=== PATIENT | male | born 1975 | race Caucasian/White ===

== ENCOUNTER 2016-09-19 20:10 | Emergency (ER) | payer MEDICAID, OTHER ==
[~2016-09-19] VITALS: Ht 185.4 cm; Wt 108.9 kg
[2016-09-19 20:58] LABS: BILIRUBIN,URINE NEGATIVE (NEGATIVE); KETONES,URINE NEGATIVE (NEGATIVE); LEUKOCYTE ESTERASE ,URINE 3+ (NEGATIVE); NITRITE,URINE NEGATIVE (NEGATIVE); PH,URINE 5 (5-9); PROTEIN,URINE 2+ (NEGATIVE); UROBILINOGEN,URINE NORMAL (NORMAL)
[2016-09-19] MEDS ORDERED: NS IV 1000 ML 3,500 ML IV PRN (21:00)
[2016-09-19] MEDS ORDERED: ACETAMINOPHEN 500 MG TAB (TYLENOL) PO PRN (21:00)
[2016-09-19] MEDS ORDERED: KETOROLAC 30 MG/ML VIAL IVP STA (21:00)
[2016-09-19] MEDS ORDERED: cefTRIAXone 1 GM (ROCEPHIN) VIAL IV STA (21:00)
[2016-09-19 21:06] LABS: SQUAMOUS EPITHELIAL CELL,UR 0-2 /HPF; YEAST,URINE FEW /HPF
[2016-09-19 21:39] LABS: BASOPHILS # (AUTO) 0.1 10^3/uL (0.0-0.1); BASOPHILS % (AUTO) 0 % (0-10); EOSINOPHILS # (AUTO) 0.1 10^3/uL (0.0-0.3); EOSINOPHILS % (AUTO) 0 % (0-10); LYMPHOCYTES # (AUTO) 1.9 X 10^3 (1.0-4.0); LYMPHOCYTES % (AUTO) 9 % (12-44); MEAN CORPUSCULAR HEMOGLOBIN 30 PG (25-34); MEAN CORPUSCULAR HGB CONC 34 G/DL (32-36); MEAN CORPUSCULAR VOLUME 90 FL (80-99); MEAN PLATELET VOLUME 9.5 FL (7.4-10.4); MONOCYTES # (AUTO) 2.7 X 10^3 (0.0-1.0); MONOCYTES % (AUTO) 13 % (0-12); NEUTROPHILS # (AUTO) 16.3 X 10^3 (1.8-7.8); NEUTROPHILS % (AUTO) 77 % (42-75); PLATELET COUNT 355 10^3/uL (130-400); RED BLOOD COUNT 4.84 10^6/uL (4.35-5.85); RED CELL DISTRIBUTION WIDTH 12.9 % (10.0-14.5); WHITE BLOOD COUNT 21.1 10^3/uL (4.3-11.0)
--- NOTE | 2016-09-19 21:46 | ED GU-Male ---
General Chief Complaint: Abdominal/GI Problems Stated Complaint: KIDNEY STONE Nursing Triage Note: RIGHT FLANK PAIN X2 WEEKS, KNOWN KIDNEY STONE. ALSO C/O LEFT RIB PAIN X2 WEEKS S/P FALL Source: patient, spouse Exam Limitations: no limitations History of Present Illness Time seen by provider: 20:50 Initial Comments 40-year-old male patient presents to the emergency department complaints of right flank pain for approximately 2 weeks. Worse today. Does have a known 6 mm stone in the right kidney. Go in the emergency department in [place] for left rib pain after falling. Reports fever today. NPO since 1930. Timing/Duration: other (onset 2 weeks ago, worse over the last couple of days.) Severity/Quality: aching, sharp, stabbing Location: right flank Radiation: other (right low back) Activities at Onset: none Prior Genitourinary Problems: similar symptoms Sexual Rubicon History: less than 2 months ago, single partner Modifying Factors: Worsens With Lying down, Worsens With Palpation Allergies and Home Medications Allergies Coded Allergies: No Known Drug Allergies (Unverified , 09/19/16) Home Medications No Active Prescriptions or Reported Meds Constitutional: chills, diaphoresis, fever, malaise EENTM: no symptoms reported Respiratory: No cough, No short of breath Cardiovascular: No chest pain, No edema, No palpitations Gastrointestinal: see HPI, No abdominal pain, No constipation, No diarrhea, loss of appetite, nausea, No vomiting Genitourinary: see HPI, denies burning, denies discharge, denies dysuria, denies frequency, flank pain (right flank pain), denies hematuria Musculoskeletal: see HPI, back pain (right low back), No joint pain Skin: no symptoms reported Psychiatric/Neurological: No Symptoms Reported All Other Systemes Reviewed Negative Unless Noted: Yes (Negative excepted noted.) Past Kddowbm-Mhajhy-Itroox Hx Patient Social History Alcohol Use: Regular Use Recreational Drug Use: No Smoking Status: Current Everyday Smoker Type Used: Cigarettes 2nd Hand Smoke Exposure: Yes Recent Foreign Travel: No Contact w/Someone Who Travel: No Recent Infectious Disease Expo: No Recent Hopitalizations: No Immunizations Up To Date Tetanus Booster (TDap): Unknown Seasonal Allergies Seasonal Allergies: No Surgeries HX Surgeries: Yes Surgeries: Orthopedic Respiratory Hx Respiratory Disorders: No Cardiovascular Hx Cardiac Disorders: No Neurological Hx Neurological Disorders: No Genitourinary Hx Genitourinary Disorders: Yes Genitourinary Disorders: Kidney Stones Gastrointestinal Hx Gastrointestinal Disorders: No Musculoskeletal Hx Musculoskeletal Disorders: Yes Musculoskeletal Disorders: Back Injury, Chronic Back Pain Endocrine Hx Endocrine Disorders: No HEENT HX ENT Disorders: No Cancer Hx Cancer: No Blood Transfusions Adverse Reaction to a Blood Tr: No Reviewed Nursing Assessment Reviewed/Agree w Nursing PMH: Yes Family Medical History Significant Family History: No Pertinent Family Hx Physical Exam Vital Signs Vital Sign - Last 12Hours 09/19/16 20:48 Temp 101.4 Pulse 91 Resp 20 B/P (MAP) 149/92 Pulse Ox 98 O2 Delivery Room Air Capillary Refill : Less Than 3 Seconds General Appearance: WD/WN, moderate distress HEENT: PERRL/EOMI, pharynx normal Neck: supple, normal inspection Cardiovascular: normal peripheral pulses, no edema, no murmur, tachycardia Respiratory: lungs clear, normal breath sounds, no respiratory distress Gastrointestinal: normal bowel sounds, soft, no organomegaly, No distended, guarding ((right flank)), No rebound, tenderness (right flank tenderness) Back: normal inspection, no vertebral tenderness, CVA tenderness (R), No CVA tenderness (L) Extremities: no pedal edema, normal capillary refill Neurologic/Psychiatric: alert, normal mood/affect, oriented x 3 Skin: normal color, diaphoresis Focused Exam Lactic Acid Level Laboratory Tests Test 09/19/16 21:15 Lactic Acid Level 1.47 MMOL/L (0.50-2.00) Progress/Results/Core Measures Results/Orders Lab Results Laboratory Tests Test 09/19/16 20:54 09/19/16 21:15 Range/Units Urine Color YELLOW Urine Clarity CLEAR Urine pH 5 5-9 Urine Specific [place] 1.020 1.016-1.022 Urine Protein 2+ H NEGATIVE Urine Glucose (UA) NEGATIVE NEGATIVE Urine Ketones NEGATIVE NEGATIVE Urine Nitrite NEGATIVE NEGATIVE Urine Bilirubin NEGATIVE NEGATIVE Urine Urobilinogen NORMAL NORMAL MG/DL Urine Leukocyte Esterase 3+ H NEGATIVE Urine RBC (Auto) 1+ H NEGATIVE Urine RBC 0-2 /HPF Urine WBC 10-25 H /HPF Urine Squamous Epithelial Cells 0-2 /HPF Urine Crystals NONE /LPF Urine Bacteria NEGATIVE /HPF Urine Casts NONE /LPF Urine Mucus NEGATIVE /LPF Urine Yeast FEW H /HPF Urine Culture Indicated YES Urine Opiates Screen NEGATIVE NEGATIVE Urine Oxycodone Screen NEGATIVE NEGATIVE Urine Methadone Screen NEGATIVE NEGATIVE Urine Propoxyphene Screen NEGATIVE NEGATIVE Urine Barbiturates Screen NEGATIVE NEGATIVE Ur Tricyclic Antidepressants Screen NEGATIVE NEGATIVE Urine Phencyclidine Screen NEGATIVE NEGATIVE Urine Amphetamines Screen POSITIVE H NEGATIVE Urine Methamphetamines Screen POSITIVE H NEGATIVE Urine Benzodiazepines Screen NEGATIVE NEGATIVE Urine Cocaine Screen NEGATIVE NEGATIVE Urine Cannabinoids Screen NEGATIVE NEGATIVE White Blood Count 21.1 H 4.3-11.0 10^3/uL Red Blood Count 4.84 4.35-5.85 10^6/uL Hemoglobin 14.6 13.3-17.7 G/DL Hematocrit 44 40-54 % Mean Corpuscular Volume 90 80-99 FL Mean Corpuscular Hemoglobin 30 25-34 PG Mean Corpuscular Hemoglobin Concent 34 32-36 G/DL Red Cell Distribution Width 12.9 10.0-14.5 % Platelet Count 355 130-400 10^3/uL Mean Platelet Volume 9.5 7.4-10.4 FL Neutrophils (%) (Auto) 77 H 42-75 % Lymphocytes (%) (Auto) 9 L 12-44 % Monocytes (%) (Auto) 13 H 0-12 % Eosinophils (%) (Auto) 0 0-10 % Basophils (%) (Auto) 0 0-10 % Neutrophils # (Auto) 16.3 H 1.8-7.8 X 10^3 Lymphocytes # (Auto) 1.9 1.0-4.0 X 10^3 Monocytes # (Auto) 2.7 H 0.0-1.0 X 10^3 Eosinophils # (Auto) 0.1 0.0-0.3 10^3/uL Basophils # (Auto) 0.1 0.0-0.1 10^3/uL Neutrophils % (Manual) 85 % Lymphocytes % (Manual) 7 % Monocytes % (Manual) 8 % Eosinophils % (Manual) 0 % Basophils % (Manual) 0 % Band Neutrophils 0 % Blood Morphology Comment NORMAL Prothrombin Time 13.4 12.2-14.7 SEC INR Comment 1.1 0.8-1.4 Activated Partial Thromboplast Time 38 H 24-35 SEC Sodium Level 134 L 135-145 MMOL/L Potassium Level 4.5 3.6-5.0 MMOL/L Chloride Level 98 98-107 MMOL/L Carbon Dioxide Level 26 21-32 MMOL/L Anion Gap 10 5-14 MMOL/L Blood Urea Nitrogen 20 H 7-18 MG/DL Creatinine 1.69 H 0.60-1.30 MG/DL Estimat Glomerular Filtration Rate 45 BUN/Creatinine Ratio 12 Glucose Level 125 H 70-105 MG/DL Lactic Acid Level 1.47 0.50-2.00 MMOL/L Calcium Level 10.1 8.5-10.1 MG/DL Total Bilirubin 0.5 0.1-1.0 MG/DL Aspartate Amino Transf (AST/SGOT) 15 5-34 U/L Alanine Aminotransferase (ALT/SGPT) 24 0-55 U/L Alkaline Phosphatase 55 40-136 U/L Total Protein 7.4 6.4-8.2 G/DL Albumin 3.9 3.2-4.5 G/DL My Orders Orders - JENNA ABBASI PA Ua Culture If Indicated (09/19/16 20:41) Drug Screen Stat (Urine) (09/19/16 20:57) Ketorolac Injection (Toradol Injection) (09/19/16 21:00) Cbc With Automated Diff (09/19/16:00) Comprehensive Metabolic Panel (09/19/16 21:00) Lactic Acid Analyzer (09/19/16 21:00) Blood Culture (09/19/16 21:00) Ua Culture If Indicated (09/19/16:00) Protime With Inr (09/19/16:00) Partial Thromboplastin Time (09/19/16 21:00) Chest 1 View, Ap/Pa Only (09/19/16 21:00) Acetaminophen Tablet (Tylenol Tablet) (09/19/16 21:00) Saline Lock/Iv-Start (09/19/16 21:00) Ns Iv 1000 Ml (Sodium Chloride 0.9%) (09/19/16 21:00) Vital Signs Adult Sepsis Patie Q1HR (09/19/16 21:00) Ceftriaxone Injection (Rocephin Injectio (09/19/16 21:00) Remove Rings In Anticipation O (09/19/16 21:00) Ct Abd/Pelvis Wo(Kidney Stone) (09/19/16 21:00) Urine Culture (09/19/16 20:54) Abdomen/Kub 1view (09/19/16 21:38) Manual Differential (09/19/16 21:15) Medications Given in ED Current Medications Medications Dose Ordered Sig/Ratna Route Start Time Stop Time Status Last Admin Dose Admin Acetaminophen 1,000 mg ONCE PRN PO 09/19/16 21:00 09/19/16 21:25 DC 09/19/16 21:25 1,000 MG Sodium Chloride 3,500 ml @ 1,750 mls/hr PRN PRN IV 09/19/16 21:00 09/20/16 01:43 DC 09/19/16 21:25 1,750 MLS/HR Vital Signs/I&O Vital Sign - Last 12Hours 09/19/16 09/19/16 09/19/16 09/19/16 20:48 21:25 21:25 22:08 Temp 101.4 101.4 101.4 100.0 Pulse 91 84 Resp 20 18 B/P (MAP) 149/92 136/88 Pulse Ox 98 O2 Delivery Room Air Room Air 09/19/16 22:26 Temp 102.5 Intake and Output 09/20/16 00:00 Intake Total 3500 ml Balance 3500 ml Blood Pressure Mean: 111 Diagnostic Imaging Diagonstic Imaging: CT Plain Films/CT/US/NM/MRI: abdomen, pelvis Comments FINDINGS: Noncontrast CT scanning of the abdomen and pelvis demonstrates 6.1 mm calculi just below the right ureteropelvic junction with moderate right hydronephrosis. Edema is present in the right kidney. No other renal calculi are identified. The urinary bladder appears normal. The lung bases are clear. The liver, gallbladder, spleen, pancreas, adrenal glands, and left kidney are normal. The bowel loops appear normal. No ascites, free air or abnormal adenopathy is present. Postoperative changes are present within the spine. IMPRESSION: There is a 6.1 mm obstructing calculi in the proximal right ureter with right-sided hydronephrosis and edema. Dictated by: Dictated on workstation # [id number] Reviewed: Reviewed by Me (radiology report reviewed by me) Diagonstic Imaging: Xray Plain Films/CT/US/NM/MRI: chest Comments FINDINGS: Frontal view of the chest demonstrates the lungs to be clear. The heart, mediastinum and pulmonary vascularity are normal. IMPRESSION: Negative chest. Dictated by: Dictated on workstation # [id number] Reviewed: Reviewed by Me (radiology report reviewed by me) Diagonstic Imaging: Xray Plain Films/CT/US/NM/MRI: abdomen Comments FINDINGS: Supine view of the abdomen demonstrates postoperative changes to the lumbar spine. Moderate amount of stool is present in the colon. No obstruction is present. There is a 7 mm calcification overlying the left kidney. This could be within the bowel also. Impression: 1. There is a calcification overlying the left kidney. 2. Postoperative changes are present in the spine. 3. Increased stool is seen in the colon. Dictated by: Dictated on workstation # [id number] Reviewed: Reviewed by Me (radiology report reviewed by me) Departure Communication Progress Notes Patient reports improvement in symptoms with medications and IV fluids given. Patient is able to rest and quickly. Patient case discussed with Dr. Reed, however Dr. Torrez is out of town until Wednesday. Recommends transfer to a facility with urology available due to sepsis and right ureteral obstruction. The laboratory findings, diagnostic study findings, and plan for transfer discussed with the patient and spouse. Both voice understanding and agree with treatment plan. [place] [facility] call contacted. Patient case discussed with Dr. Busby. He accepts patient to his hospitalist service with Dr. Quesada consulted. Patient case and plan for transfer discussed with Dr. Mendoza, he agrees with the plan of care. Impression Impression: Primary Impression: Sepsis Qualified Codes: A41.9 - Sepsis, unspecified organism Additional Impressions: Calculus of right ureter Hydronephrosis Qualified Codes: N13.2 - Hydronephrosis with renal and ureteral calculous obstruction Disposition: XFER SHT-TRM HOSP Condition: Stable Transfer Transfer Notes Dr. Busby accepts patient to his hospitalist service with Dr. Quesada consulted. Transfer Time: 23:50 Transfer Facility: [facility] Method of Transfer: EMS Departure-Patient Inst. Scripts No Active Prescriptions or Reported Meds JENNA ABBASI September 19, 2016 21:46
[2016-09-19 21:48] LABS: INR 1.1 (0.8-1.4); PROTHROMBIN TIME PATIENT 13.4 SEC (12.2-14.7)
--- NOTE | 2016-09-19 21:49 | Diagnostic Imaging Report ---
INDICATION: Dehydration, sweats, history of dislocated floating rib, history of stones. FINDINGS: Frontal view of the chest demonstrates the lungs to be clear. The heart, mediastinum and pulmonary vascularity are normal. IMPRESSION: Negative chest. Dictated by: Dictated on workstation # [id number]
--- NOTE | 2016-09-19 21:49 | Diagnostic Imaging Report ---
INDICATION: Dehydration, sweats, history of dislocated floating rib, history of stones. FINDINGS: Supine view of the abdomen demonstrates postoperative changes to the lumbar spine. Moderate amount of stool is present in the colon. No obstruction is present. There is a 7 mm calcification overlying the left kidney. This could be within the bowel also. Impression: 1. There is a calcification overlying the left kidney. 2. Postoperative changes are present in the spine. 3. Increased stool is seen in the colon. Dictated by: Dictated on workstation # [id number]
--- NOTE | 2016-09-19 21:54 | Diagnostic Imaging Report ---
PROCEDURE: CT urinary tract, rule out kidney stone. TECHNIQUE: Multiple contiguous axial images were obtained through the abdomen and pelvis without the use of intravenous contrast. INDICATION: History of kidney stones and dehydration, appendectomy, lumbar surgery FINDINGS: Noncontrast CT scanning of the abdomen and pelvis demonstrates 6.1 mm calculi just below the right ureteropelvic junction with moderate right hydronephrosis. Edema is present in the right kidney. No other renal calculi are identified. The urinary bladder appears normal. The lung bases are clear. The liver, gallbladder, spleen, pancreas, adrenal glands, and left kidney are normal. The bowel loops appear normal. No ascites, free air or abnormal adenopathy is present. Postoperative changes are present within the spine. IMPRESSION: There is a 6.1 mm obstructing calculi in the proximal right ureter with right-sided hydronephrosis and edema. Dictated by: Dictated on workstation # [id number]
[2016-09-19 21:58] LABS: ALBUMIN 3.9 G/DL (3.2-4.5); BILIRUBIN,TOTAL 0.5 MG/DL (0.1-1.0); CALCIUM 10.1 MG/DL (8.5-10.1); CREATININE SERUM 1.69 MG/DL (0.60-1.30); POTASSIUM 4.5 MMOL/L (3.6-5.0); TOTAL PROTEIN 7.4 G/DL (6.4-8.2)
[2016-09-19 22:03] LABS: BAND NEUTROPHILS 0 %; BASOPHILS % (MANUAL) 0 %; EOSINOPHILS % (MANUAL) 0 %; LYMPHOCYTES % (MANUAL) 7 %; NEUTROPHILS % (MANUAL) 85 %
[2016-09-20 01:30] VITALS: BP 129/78
== END 2016-09-20 01:30 | disposition short-term general hospital (02) ==
LOC: ER 20:14
DX: A41.9 Sepsis, unspecified organism (principal); N13.2 Hydronephrosis with renal and ureteral calculous obstruction; F17.210 Nicotine dependence, cigarettes, uncomplicated; F15.90 Other stimulant use, unspecified, uncomplicated
CPT/HCPCS: 36415; 71010; 74000; 74176; 80053; 80306; 81000; 83605; 85007; 85027; 85610; 85730; 87040; 87088; 96361; 96374; 96375